=== PATIENT | male | born 1985 | race Caucasian/White ===

== ENCOUNTER 2021-11-24 13:16 | Emergency (ER) | payer OTHER, SELFPAY ==
--- NOTE | ~2021-11-24 | CT_ITS ---
EXAMINATION: CT KNEE WITH CONTRAST, RIGHT CLINICAL INFORMATION: Right posterior knee cellulitis versus abscess. COMPARISON: None TECHNIQUE: Multidetector CT imaging of the right knee was performed after the administration of 85 mL Omnipaque 350 intravenous contrast. Coronal and sagittal reformats are reviewed. This CT examination was performed using dose optimization techniques as appropriate, variously including the following: *Automated exposure control *Adjustment of mA and/or kV according to patient size (this includes techniques or standardized protocols for targeted exams where dose is matched to indication/reason for exam; i.e. extremities or head) *Use of iterative reconstruction technique DLP: 233 mGy-cm FINDINGS: There is skin thickening and subcutaneous fat reticulation along the distal thigh posteriorly, within the subcutaneous fat overlying the popliteal fossa and along the posterior upper calf. Fluid does become more coalescent superficial to the gastrocnemius musculature, however there is no drainable collection or evidence of abscess formation. No popliteal cyst is identified. No joint effusion. No periosteal reaction, cortical destruction or intramedullary lucency to suggest osteomyelitis. No fractures. Cruciate ligaments, medial and lateral collateral ligaments and extensor mechanism are grossly intact. CT/CT knee RT w con IMPRESSION: * There is regional edema within the subcutaneous fat posterior to the knee joint which could be compatible cellulitis. * No evidence of abscess formation. * Inflammation does not extend deep to the superficial fascia. * No soft tissue gas to suggest necrotizing fasciitis. * No evidence of osteomyelitis. * No joint effusion.
[2021-11-24 13:42] VITALS: BP 142/85; PULSE 117; RESP 18; TEMP 36.9; O2SAT 97; BMI 27.5
--- NOTE | 2021-11-24 15:32 | ED_ITS ---
HPI - Skin/Abscess/Foreign Bdy General Chief complaint: Skin/Abscess/Foreign Body Stated complaint: R leg infection Time Seen by Provider: 11/24/21 15:10 Source: patient Mode of arrival: ambulatory History of Present Illness HPI narrative: 36-year-old male with no significant past medical history presenting to the ED complaining of swelling, erythema, and pain behind right knee x5 days. Reports area 1st started looking like rash, now is worsening with unremitting pain causing difficulty ambulating. Denies known tick/insect bites, does admit to [facility] on the 10 of November. Also reports fever T-max 100 degrees last night, denies taking antipyretics today. Denies drainage from area, numbness, tingling MD complaint: rash and discoloration Onset (ago): day(s) Related Data Home Medications Medication Instructions Recorded Confirmed acetaminophen 500 mg tablet 500 mg PO Q6H PRN 11/24/21 (Tylenol Extra Strength) ibuprofen 400 mg tablet 400 mg PO Q8H 11/24/21 Previous Rx's Medication Instructions Recorded cephalexin 500 mg capsule 500 mg PO QID 7 days #28 caps 11/24/21 doxycycline hyclate 100 mg tablet 100 mg PO BID 7 days #14 tabs 11/24/21 Allergies Allergy/AdvReac Type Severity Reaction Status Date / Time No Known Allergies Allergy Verified 11/24/21 11:51 Review of Systems Review of Systems: Constitutional: + Fever, No Chills, No Fatigue, No Malaise ENT/Mouth: No Hearing loss, No Ear Pain, No Nasal Congestion, No sore throat, No Rhinorrhea, No Swallowing Difficulty Eyes: No Eye Pain, No Swelling, No Redness, No Vision Changes Cardiovascular: No Chest Pain, No SOB, No Dyspnea on Exertion, No Orthopnea, No Edema, No Palpitations Respiratory: No Cough, No Sputum, No Dyspnea Gastrointestinal: No Nausea, No Vomiting, No Diarrhea, No Constipation, No Abdominal pain Genitourinary: No irregular bleeding, No Dysuria, No Urinary Frequency, No Hematuria Musculoskeletal: + joint pain, No Myalgias, + Joint Swelling Skin: + Skin Lesions, No rash Neuro: No Weakness, No Numbness, No Paresthesias, No Headache Yes all other systems are reviewed and are negative COUNT INCLUDES THE [facility] Past Medical History Attestation statement: The following information was validated with the patient. Social History Social History Advance Directives: No Advance Directives Information Provided: No Physical Exam Vital Signs: Vital Signs: Last Vital Signs Temp 98.4 F 11/24/21 13:42 Pulse 117 H 11/24/21 13:42 Resp 18 11/24/21 13:42 BP 142/85 H 11/24/21 13:42 Pulse Ox 97 11/24/21 13:42 O2 Del Method 11/24/21 13:42 BMI result Body Mass Index 27.5 Const: General: cooperative, healthy appearing and no acute distress Orientation/consciousness: patient oriented x3 Limitations: no limitations HEENT: Head: Yes normal to inspection and Yes atraumatic Ears: hearing grossly normal bilaterally General nose exam: Normal external nose present Face and sinus: Yes normal facial exam Eyes: General: appearance normal, both eyes and all related structures EOM: EOMs intact bilaterally Neck: Neck: Yes normal visual inspection and Yes no meningeal signs Resp: Effort & Inspection: normal respiratory effort and no respiratory distress Cardio: Rate: regular rate Heart sounds: S1 normal heart sound present and S2 normal heart sound present Skin: Other: Please refer to imaging above of posterior right knee. Noted erythema, warm to touch, some crusting, + induration. No fluctuance or drainage. No streaking. Wounds: no wounds Neuro: Other: Ambulating with limping gait General: patient oriented x3, tone normal and no meningeal signs Extrem: Other: anterior aspect of knee nontender. Course Course Course Narrative: -1639--mild leukocytosis of 11.2. Lactic acid negative. Labs otherwise unremarkable. CT knee RT w con IMPRESSION: *? There is regional edema within the subcutaneous fat posterior to the knee joint which could be compatible cellulitis. *? No evidence of abscess formation. *? Inflammation does not extend deep to the superficial fascia. *? No soft tissue gas to suggest necrotizing fasciitis. *? No evidence of osteomyelitis. *? No joint effusion. ? -HR improved to 95 prior to discharge > Results discussed with patient including worrisome signs and symptoms and str ict return precautions, and when to return to the emergency department. They verbalized understanding and feel safe for discharge at this time. MDM - Skin/Abscess/Foreign Bdy MDM Narrative Medical decision making narrative: 36-year-old male with no significant past medical history presenting to the ED complaining of swelling, erythema, and pain behind right knee x5 days. On exam tachycardic to 117, likely from pain. Low suspicion for severe sepsis. Physical exam as above, please refer to image. Concern for indurated abscess vs cellulitis. Low suspicion for septic joint/arthritis. ? Possible tick or insect bite Plan: Labs, lactic/blood cultures, CT of knee for further evaluation, IV an tibiotics Differential Diagnosis Differential diagnosis: Likely abscess of skin or subcutaneous tissue, insect bites and contact dermatitis Medical Records Attestation: I reviewed the patient's medical records. Lab Data Attestation: I reviewed the patient's lab results. Result diagrams: 11/24/21 15:34 11/24/21 15:34 Labs: Lab Results 11/24/21 11/24/21 11/24/21 Range/Units 15:34 15:34 15:34 WBC 11.2 H (4.8-10.8) X10*3/uL RBC 4.70 (4.60-5.80) X10*6/uL Hgb 13.1 L (14.0-18.0) g/dl Hct 39.0 L (42.0-52.0) % MCV 83.0 (80.0-98.0) fL MCH 27.9 (27.0-33.0) pg MCHC 33.6 (31.0-36.0) g/dl RDW 12.0 (11.0-16.0) % Plt Count 244 (160-400) X10*3/uL MPV 8.2 L (9.4-12.4) fL Immature Gran % (Auto) 0.4 (0.0-0.4) % Neut % (Auto) 76.0 H (45-73) % Lymph % (Auto) 13.0 L (20-40) % [place] % (Auto) 10.4 (2-11) % Eos % (Auto) 0.1 (0-4) % Baso % (Auto) 0.1 (0-2) % Lymph # (Auto) 1.5 (1.2-4.9) X10*3/uL [place] # (Auto) 1.2 (0.1-1.2) X10*3/uL Eos # (Auto) 0.0 (0.0-0.4) X10*3/uL Baso # (Auto) 0.0 (0.0-0.2) X10*3/uL Abs Immat Gran (auto) 0.05 H (0.00-0.03) X10*3/uL Absolute Neuts (auto) 8.5 H (2.0-8.3) x10*3/uL Absolute Nucleated RBC 0.000 (0.0-0.012) X10*3/uL Nucleated RBC % (auto) 0.0 (0.0-0.2) /100WBC Sodium 138 (135-145) mmol/L Potassium 4.0 (3.3-5.1) mmol/L Chloride 103 (96-108) mmol/L Carbon Dioxide 27 (22-29) mmol/L Anion Gap 12 (12-20) BUN 11 (9-16) mg/dL Creatinine 0.97 (0.5-1.4) mg/dL Estim Creat Clear Calc 124.6 Estimated GFR > 60 Random Glucose 105 (60-115) mg/dL Lactic Acid 0.9 (0.5-2.0) mmol/L Calcium 9.5 (8.4-10.2) mg/dL Total Bilirubin 1.4 H (0.0-1.0) mg/dL AST 13 (5-37) U/L ALT 13 (0-40) U/L Alkaline Phosphatase 88 (39-117) U/L Total Protein 8.0 (6.5-8.0) g/dL Albumin 4.6 (3.5-5.0) g/dL Discharge Plan Discharge Clinical Impression: Cellulitis Patient Disposition: Home, Self-Care Instructions: Cellulitis (ED) Additional Instructions: Your blood work was reassuring today in the emergency department. Keflex and doxycycline for antibiotics please take as prescribed. If your symptoms persist, worsen, redness is spreading, you develop drainage from area, persistent or worsening pain, or fever return to the emergency department. Apply warm compresses Prescriptions: New doxycycline hyclate 100 mg tablet 100 mg PO BID 7 Days Qty: 14 0RF cephalexin 500 mg capsule 500 mg PO QID 7 Days Qty: 28 0RF No Action ibuprofen 400 mg tablet 400 mg PO Q8H acetaminophen [Tylenol Extra Strength] 500 mg tablet 500 mg PO Q6H PRN Referrals: Physician,Unknown J [Primary Care Provider] - 2 days (For re-evaluation)
[2021-11-24 15:42] LABS: MANUAL DIFF FLAG NO
[2021-11-24 15:47] LABS: Basophils Percent Auto 0.1 % (0-2); Eosinophils Percent Auto 0.1 % (0-4); Hemoglobin 13.1 g/dl (14.0-18.0); Imm Gran Abs Auto 0.05 X10*3/uL (0.00-0.03); Imm Gran Pct Auto 0.4 % (0.0-0.4); Lymphocytes Absolute Auto 1.5 X10*3/uL (1.2-4.9); Mean Corpuscular HGB Conc 33.6 g/dl (31.0-36.0); Mean Corpuscular Hemoglobin 27.9 pg (27.0-33.0); Mean Platelet Volume 8.2 fL (9.4-12.4); Monocytes Absolute Auto 1.2 X10*3/uL (0.1-1.2); Monocytes Percent Auto 10.4 % (2-11); Neutrophils Absolute Auto 8.5 x10*3/uL (2.0-8.3); Platelet Count 244 X10*3/uL (160-400); White Blood Count 11.2 X10*3/uL (4.8-10.8)
[2021-11-24] MEDS: iohexoL 350 MG/ML 100 ML INFUS..BTL IV (15:57)
[2021-11-24 16:00] LABS: Lactic Acid 0.9 mmol/L (0.5-2.0)
[2021-11-24] MEDS: Ketorolac Tromethamine 15 MG/ML VIAL IVPUSH (16:02)
[2021-11-24] MEDS: cefTRIAXone sodium 1 GM in 0.9 % Sodium Chloride 50 ML IV (16:02)
[2021-11-24 16:06] LABS: Alanine Aminotransferase 13 U/L (0-40); Albumin Level 4.6 g/dL (3.5-5.0); Alkaline Phosphatase 88 U/L (39-117); Anion Gap 12 (12-20); Aspartate Amino Transferase 13 U/L (5-37); Bilirubin Total 1.4 mg/dL (0.0-1.0); Blood Urea Nitrogen 11 mg/dL (9-16); Calcium 9.5 mg/dL (8.4-10.2); Carbon Dioxide 27 mmol/L (22-29); Chloride 103 mmol/L (96-108); Creatinine Clr Calc Pharmacy 124.6; Estimated Glomerular Filt Rate > 60; Glucose Random 105 mg/dL (60-115); Sodium 138 mmol/L (135-145)
== END 2021-11-24 17:55 | disposition home or self-care (01) ==
PROVIDERS: Physician Assistant; Emergency Provider Emergency Medicine
DX: L03.115 Cellulitis of right lower limb (principal); M25.461 Effusion, right knee; Z79.899 Other long term (current) drug therapy
CPT/HCPCS: 36415; 73701; 80053; 83605; 85025; 87040; 96365; 96375; 99283; 99284; J0696; J1885; Q9967

== ENCOUNTER 2024-01-19 11:06 | Outpatient (AMB) | payer OTHER, SELFPAY ==
[2024-01-19 11:08] VITALS: BP 128/84; PULSE 119; TEMP 36.2; O2SAT 97; BMI 27.9
--- NOTE | 2024-01-19 11:08 | MHC.OFFWIV ---
Intake Vital Signs 01/19/24 11:08 Height 6 ft 3 in Weight 223 lb BMI 27.9 BP 128/84 Blood Pressure Location Lt brachial Position Sitting Pulse 119 H Pulse Source Pulse Oximeter Temp 97.2 F Temp Source Temporal Artery Scan Pulse Oximetry (%) 97 Oxygen Delivery Method Room Air Intake Visit Reasons: EP-sore throat Intake Note: pt c/o sore throat, fever. Started Wednesday Patient Tobacco Use Status: Former Tobacco user Allergies No Known Allergies Allergy (Verified 01/19/24 11:09) Do you need a note to return to daycare/school/sports/work: No HPI HPI Comments History of Present Illness Details Patient is a 38-year-old male complaining of 4 days of a sore throat and fevers up to 101F. 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 He has been taking Tylenol and ibuprofen for his fever and throat pain. He denies a cough, sinus pain, ear pain, headaches or shortness of breath. [facility] Social History Patient Tobacco Use Status: Former Tobacco user Review of Systems Const All systems reviewed & are unremarkable except as noted in HPI and below Physical Exam Vital Signs: Last Vital Signs Temp 97.2 F 01/19/24 11:08 Pulse 119 H 01/19/24 11:08 BP 128/84 01/19/24 11:08 Pulse Ox 97 01/19/24 11:08 Oxygen Delivery Method Room Air 01/19/24 11:08 BMI result Body Mass Index 27.9 Const General: cooperative, healthy appearing, comfortable and no acute distress Orientation/consciousness: patient oriented x3 Limitations: no limitations HEENT Head: Yes normal to inspection Ears: hearing grossly normal bilaterally, external ears normal and TM's normal bilaterally General nose exam: Normal external nose present, Normal nares present and No nasal discharge present Face and sinus: Yes normal facial exam and Yes sinuses nontender Mouth: Normal oral and palatal mucosa present and moist mucous membranes Throat: Yes tonsils normal, Yes uvula midline and Yes posterior oropharynx abnormal (Erythema) Eyes General: appearance normal, both eyes and all related structures Neck Neck: Yes normal visual inspection Resp Effort & Inspection: normal respiratory effort, able to speak in complete sentences, Actively coughing, no respiratory distress, not tachypneic, no tripod positioning and no use of accessory muscles Skin General skin exam: no rashes or lesions noted Neuro General: patient oriented x3 Extrem General: Yes normal to inspection and Yes no clubbing, cyanosis or edema Results AMB Rapid Strep AMB Rapid Strep Positive Last Edit by Kendrick Gale CMA on 01/19/24 11:27 Results Reviewed Results Reviewed: Laboratory Last Values Strep Scn Rapid Clinic Positive 01/19/24 11:26 Assessment & Plan Assessment & Plan (1) Strep pharyngitis: Code(s): J02.0 - Streptococcal pharyngitis Plan: Rapid strep positive in office, sent flu COVID and RSV. Sent amoxicillin to pharmacy, gave patient instructions to take it with food and to continue using Tylenol and ibuprofen for fever and throat pain. Plan See above Orders: Orders SARS-CoV2/FLU/RSV Today J06.9 - Acute upper respiratory infection, unspecified AMB Rapid Strep Screen Today Z13.9 - Encounter for screening, unspecified Medications: New amoxicillin 500 mg PO BID 20 tabs 0RF Coding Level of Care Code New Pt Level 3 (16725) Diagnoses Strep pharyngitis J02.0
--- OUTSIDE RECORDS SUMMARY | 2024-01-19 11:08 | XMS_ITS | Continuity of Care Document ---
Author Organization [facility] Address [address] [facility] [place] [address]- Care Team Providers Care Saloonkeeper Name Role Phone Bernie Boyd Primary Care Physician [phone] Encounter 11/22/23 - 11/29/23 [facility] [address], [address] [place] [address]- Attending Physician: Bernie Boyd Admitting Physician: Bernie Boyd Referring Physician: Bernie Boyd Allergies, Adverse Reactions, Alerts No Known Allergies Immunizations Given and Recorded Vaccine Date Status Refusal Reason SARS-CoV-2 (COVID-19) mRNA BNT-162b2 vac 08/15/20 Given SARS-CoV-2 (COVID-19) mRNA BNT-162b2 vac 07/25/20 Given Problem List Condition Confirmation Course Effective Dates Status Health St atus Informant Total bilirubin, elevated Confirmed Active H/O hemorrhoids Confirmed Active Hyperlipemia Confirmed Active Results Radiology Reports * Exam Date Time Procedure Performing Provider Status 11/22/23 11:34 AM Lumbar Spine 2 or 3 Views Dionne Stein yovana; Auth (Verified) Notes: (Lumbar Spine 2 or 3 Views) Reason For Exam: Pain RESULT: Lumbar Spine 2 or 3 Views Lumbar Spine 2 or 3 Views INDICATION/CLINICAL QUESTION: Reason: Pain / . TECHNIQUE: AP, lateral, and coned-down lateral views.. COMPARISON: None. FINDINGS: There is normal segmentation. There is no fracture. There is no focal bony lesion. The alignment is normal including no spondylolisthesis. The discs are of normal height without degenerative change.. IMPRESSION: 1. No fracture or focal lesion. 2. No spondylolisthesis. 3. No degenerative changes.. WSN: [id number] Ordering Physician: Bernie Ramesh Dictated By: Miguel Young MD Dictated Date/Time: 11/22/23 4:32 pm Reviewed By: Miguel Young MD Signed By: Miguel Young MD Signed Date/Time: 11/22/23 4:32 pm Transcribed By: LLOYD Transcribed Date/Time: 11/22/23 4:31 pm Social History Social History Type Response Smoking Status Never (less than 100 in lifetime) entered on: 06/08/22 Sex Patient Care team information Care Team Personnel Name: Bernie Boyd Position: [facility] Associate Professional Member Role: PCP Address: Address: [address] [place] [address]- Care Team Related Persons Name: BRIDGETTE LEIJA Address: home [address] [place] [address] [address] [place] [address]
--- OUTSIDE RECORDS SUMMARY | 2024-01-19 11:08 | XMS_ITS | Continuity of Care Document ---
Author Organization [facility] Primary [facility] [place] Address [address] [place] [address]- Care Team Providers Care Cash Room Clerk Name Role Phone Bernie Boyd Primary Care Physician Encounter [facility] Date(s): 10/25/23 - 11/24/23 [facility] Care [place] [address] [place] [address]- Attending Physician: Melba Figueredo Admitting Physician: AdmMelba brown Referring Physician: AdmtrMelba Allergies, Adverse Reactions, Alerts No Known Allergies Immunizations Given and Recorded Vaccine Date Status Refusal Reason SARS-CoV-2 (COVID-19) mRNA BNT-162b2 vac 08/15/20 Given SARS-CoV-2 (COVID-19) mRNA BNT-162b2 vac 07/25/20 Given Problem List Condition Confirmation Course Effective Dates Status Health St atus Informant Total bilirubin, elevated Confirmed Active H/O hemorrhoids Confirmed Active Hyperlipemia Confirmed Active Social History Social History Type Response Smoking Status Never (less than 100 in lifetime) entered on: 06/08/22 Sex Patient Care team information Care Team Personnel Name: Bernie Boyd Position: [facility] Associate Professional Member Role: PCP Address: Address: [address] [place] [address]- Care Team Related Persons Name: BRIDGETTE LEIJA Address: home [address] [place] [address]
--- OUTSIDE RECORDS SUMMARY | 2024-01-19 11:08 | XMS_ITS | Continuity of Care Document ---
Author Organization [facility] Trevor Christoph lt Address [address] [place] [address]- Care Team Providers Care Mathematical Physicist Name Role Phone Bernie Boyd Primary Care Physician Encounter [facility] Date(s): 11/22/23 - 11/29/23 [facility] Davy [address] Adult [address] [place] [address]- Encounter Diagnosis Wellness examination(Discharge Diagnosis) - 11/22/23 Back pain(Discharge Diagnosis) - 11/22/23 Attending Physician: Bernie Boyd Allergies, Adverse Reactions, Alerts No Known Allergies Immunizations Given and Recorded Vaccine Date Status Refusal Reason SARS-CoV-2 (COVID-19) mRNA BNT-162b2 vac 08/15/20 Given SARS-CoV-2 (COVID-19) mRNA BNT-162b2 vac 07/25/20 Given Problem List Condition Confirmation Course Effective Dates Status Health St atus Informant Total bilirubin, elevated Confirmed Active H/O hemorrhoids Confirmed Active Hyperlipemia Confirmed Active Diagnosis Diagnosis Type Effective Dates Health Status Clinical Service Informant Wellness examination Discharge Diagnosis 11/22/23 Back pain Discharge Diagnosis 11/22/23 Vital Signs Most recent to oldest [Reference Range]: 1 Height 191 cm (11/22/23 10:52 AM) Weight 100.7 kg (11/22/23 10:52 AM) Oxygen Saturation [94-100 %] 98 % (11/22/23 10:52 AM) Pulse Rate [55-90 bpm] 90 bpm (11/22/23 10:52 AM) Body Mass Index [18.5-24.99 kg/m2] 27.6 kg/m2 *H* (11/22/23 10:52 AM) Blood Pressure [90-138/55-84 mm Hg] 102/ 84mm Hg (11/22/23 10:52 AM) Mode of Delivery (Oxygen) Room air (11/22/23 10:52 AM) Blood pressure sites Arm, left (11/22/23 10:52 AM) Weight Obtained Via Standing scale (11/22/23 10:52 AM) Social History Social History Type Response Smoking Status Never (less than 100 in lifetime) entered on: 06/08/22 Sex Patient Care team information Care Team Personnel Name: Bernie Boyd Position: [facility] PC[facility] Associate Professional Member Role: PCP Address: Address: [address] [place] [address]- Care Team Related Persons Name: BRIDGETTE LEIJA Address: home [address] [place] [address] [address] [place] [address]
--- OUTSIDE RECORDS SUMMARY | 2024-01-19 11:08 | XMS_ITS | Continuity of Care Document ---
Author Organization [facility] Primary [place] Address [address] [place] [address]- Care Team Providers Care Needle Straightener Name Role Phone Not on Staff, PCP Primary Care Physician Unavail able Encounter [id number] Date(s): 11/25/21 - 03/06/22 [facility] [place] [address] [place] [address]- Attending Physician: Baltazar MURILLO ([facility]), Sunitario vistaese A Immunizations Given and Recorded Vaccine Date Status Refusal Reason SARS-CoV-2 (COVID-19) mRNA BNT-162b2 vac 08/15/20 Given SARS-CoV-2 (COVID-19) mRNA BNT-162b2 vac 07/25/20 Given Patient Care team information Personnel Name: Not on Staff, PCP
--- OUTSIDE RECORDS SUMMARY | 2024-01-19 11:08 | XMS_ITS | Continuity of Care Document ---
Author Organization [facility] Christoph Address [address] [place] [address]- Care Team Providers Care Salmon Gillnet Vessel Operator Name Role Phone Bernie Boyd Primary Care Physician [phone] Encounter [facility] Date(s): 11/22/23 - 12/22/23 [facility] Adult [address] [place] [address]- Attending Physician: Melba Figueredo Admitting Physician: Melba Figueredo Referring Physician: AdmtrMelba Allergies, Adverse Reactions, Alerts [...] Care Team Personnel Name: Bernie Boyd Position: [facility] PCO Associate Professional Member Role: PCP Address: Address: [address] [place] [address]- Care Team Related Persons Name: AUGUSTODONNASINDHU BRIDGETTE FERREIRA Address: home [address] [place] [address]
--- OUTSIDE RECORDS SUMMARY | 2024-01-19 11:08 | XMS_ITS | Continuity of Care Document ---
Author Organization [facility] Primary [facility] [place] Address [address] [place] [address]- Care Team Providers Care Marketing Information Manager Name Role Phone Baltazar MURILLO ([facility])Alexi Primary Care Ph ysician Encounter [facility] Date(s): 10/27/22 - 11/26/[address] [address] Allergies, Adverse Reactions, Alerts No Known Allergies [...] Care team information Care Team Personnel Name: Baltazar MURILLO ([facility])Alexi Position: [facility] Physician - Primary Care Member Role: PCP Address: Address: [address] [place] [address]- Care Team Related Persons Name: AUGUSTODONNASINDHU BRIDGETTE FERREIRA Address: home [address] [place] [address]
--- OUTSIDE RECORDS SUMMARY | 2024-01-19 11:08 | XMS_ITS | Continuity of Care Document ---
Author Organization [facility] Trevor Christoph lt Address [address] [place] [address]- Care Team Providers Care District Representative Name Role Phone Bernie Boyd Primary Care Physician Encounter [facility] Date(s): 11/30/23 - 12/30/23 [facility] Adult [address] [place] [address]- Allergies, Adverse Reactions, Alerts No Known Allergies [...] Associate Professional Member Role: PCP Address: Address: [address] [place] [address]- Care Team Related Persons Name: GINO BRIDGETTE FERREIRA Address: home [address] [place] [address]
--- OUTSIDE RECORDS SUMMARY | 2024-01-19 11:08 | XMS_ITS | Continuity of Care Document ---
Author Organization [facility] Primary [facility] [place] Address [address] [place] [address]- Care Team Providers Care Principal Quality Engineer Name Role Phone Baltazar MURILLO ([facility])Alexi Primary Care Ph ysician Encounter [facility] Date(s): 10/26/22 - 11/25/[address] [address] Allergies, Adverse Reactions, Alerts No Known Allergies [...] information Care Team Personnel Name: Baltazar MURILLO ([facility])Alexi Position: [facility] Physician - Primary Care Member Role: PCP Address: Address: [address] [place] [address]- Care Team Related Persons Name: AUGUSTODONNASINDHU BRIDGETTE FERREIRA Address: home [address] [place] [address]
== END 2024-01-19 11:48 | disposition home or self-care (01) ==
PROVIDERS: Visit Provider Physician Assistant
DX: J02.0 Streptococcal pharyngitis (principal)
CPT/HCPCS: 87880; 99203

== ENCOUNTER 2024-01-19 11:26 | Outpatient (REF) | payer OTHER, SELFPAY ==
[2024-01-19 15:09] LABS: Influenza A PCR NEGATIVE (Negative); Influenza B PCR NEGATIVE (Negative); Resp Syncy Virus RNA Qual PCR NEGATIVE (Negative); SARS COV2 PCR INHOUSE NEGATIVE (Negative)
== END 2024-01-19 11:27 | disposition home or self-care (01) ==
LOC: HO.LAB 11:26
PROVIDERS: Visit Provider Physician Assistant
DX: J06.9 Acute upper respiratory infection, unspecified (principal)
CPT/HCPCS: 0241U

== ENCOUNTER 2024-06-17 10:03 | Outpatient (AMB) | payer OTHER, SELFPAY ==
[2024-06-17 10:33] VITALS: BP 102/76; PULSE 93; RESP 18; TEMP 36.7; O2SAT 98; BMI 26.6
--- NOTE | 2024-06-17 10:33 | MHC.OFFWIV ---
Intake Vital Signs 06/17/24 10:33 Height 6 ft 3 in Weight 213 lb BMI 26.6 BP 102/76 Blood Pressure Location Rt brachial Position Sitting Respiration 18 Pulse 93 Pulse Source Pulse Oximeter Temp 98.0 F Temp Source Oral Pulse Oximetry (%) 98 Oxygen Delivery Method Room Air Intake Visit Reasons: EP-sore throat Intake Note: Pt is here today c/o sore throat, coughing and fatigue Patient Tobacco Use Status: Former Tobacco user Allergies No Known Allergies Allergy (Verified 06/17/24 10:34) HPI EP-sore throat HPI Details Patient is a 38-year-old male who comes to the walk-in clinic complaining of sore throat, and fatigue. 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 He reports that they were just diagnosed with a respiratory virus. He denies She denies fever or chills, nausea vomiting or diarrhea, malaise or myalgias, headache, dizziness or weakness, ear pain or discharge from the ears, hearing changes, chest congestion, shortness of breath or significant cough, coughing fits, chest pain, or other significant associated symptoms. [facility] Social History Patient Tobacco Use Status: Former Tobacco user Review of Systems Const All systems reviewed & are unremarkable except as noted in HPI and below Physical Exam Vital Signs: Last Vital Signs Temp 98.0 F 06/17/24 10:33 Pulse 93 06/17/24 10:33 Resp 18 06/17/24 10:33 BP 102/76 06/17/24 10:33 Pulse Ox 98 06/17/24 10:33 Oxygen Delivery Method Room Air 06/17/24 10:33 BMI result Body Mass Index 26.6 Results AMB Rapid Strep AMB Rapid Strep Positive Last Edit by Charleen Gavin CMA on 06/17/24 10:52 Results Reviewed Results Reviewed: Laboratory Last Values Strep Scn [facility] Positive 06/17/24 10:41 Positive strep test Assessment & Plan Assessment & Plan (1) Strep pharyngitis: Code(s): J02.0 - Streptococcal pharyngitis Plan: Patient with positive strep pharyngitis, which he had approximately 6 months ago also. He questions the recurrence of his symptoms, however we discussed that he does work in a school, and it is prevalence there. We discussed wearing a mask around sick children, and washing hands frequently. He also will throughout his toothbrush when his symptoms are improved. We discussed conservative measures such as adequate sleep, hydration, and nutrition. He is able to swallow, and does not have any systemic symptoms other than feeling tired. He knows to monitor symptoms and follow up if he gets worse, or go to the emergency department with worrisome symptoms. Orders: Orders AMB Rapid Strep Screen Today Z13.9 - Encounter for screening, unspecified Medications: New penicillin V potassium 500 mg PO TID 30 tabs 0RF 10 days Coding Level of Care Code Est Pt Level 4 (13278) Diagnoses Strep pharyngitis J02.0
== END 2024-06-17 12:48 | disposition home or self-care (01) ==
PROVIDERS: Visit Provider Physician Assistant Medical
DX: Z13.9 Encounter for screening, unspecified (principal)

== ENCOUNTER → 2024-06-17 10:03 | Outpatient (BNVA) | payer OTHER, SELFPAY | DX: J02.0 Streptococcal pharyngitis (principal) | CPT/HCPCS: 87880 ==

== ENCOUNTER 2024-07-04 11:32 | Outpatient (AMB) | payer OTHER, SELFPAY ==
--- NOTE | 2024-07-04 11:47 | AM.OFFWIN_ITS ---
Intake Vital Signs 07/04/24 11:49 Weight 218 lb BP 126/74 Blood Pressure Location Lt brachial Position Sitting Pulse 80 Pulse Source Pulse Oximeter Temp 98.2 F Temp Source Oral Pulse Oximetry (%) 97 Oxygen Delivery Method Room Air Intake Visit Reasons: EP Strep did not go away after abx Intake Note: Patient here because he was treated for strep throat on jun 19 and was starting to feel better but the last couple of days he feels that sore throat coming back and now also has a runny nose. Patient Tobacco Use Status: Former Tobacco user Allergies No Known Allergies Allergy (Verified 07/04/24 11:50) Do you need a note to return to daycare/school/sports/work: No HPI HPI Comments History of Present Illness Details History - The patient is a 38-year-old male pres enting with a sore throat, expressing concern about recurrent Streptococcal Pharyngitis. - The initial diagnosis was made on , with treatment involving Penicillin administered three times daily for a duration of ten days, resulting in symptom resolution after five days. - Currently, the patient reports a recur rence of sore throat symptoms, which began yesterday with increasing severity and has expressed accompanying fatigue and dizziness. - No fever, shortness of breath, or whee zing is present, and the patient has not taken additional medications in recent days. - The patient denies any history of asth ma or COPD and has not received a recent flu vaccination. - The patient reports no similar symptom s among family members. Physical Exam General: Cooperative, healthy appearing, comfortable and no acute distress Orientation/consciousness: Patient oriented x3 Limitations: No limitations Head: Normal to inspection Ears: Hearing grossly normal bilaterally, external ears normal and TM's normal bilaterally Nose: Normal external nose present, Normal nares present and Runny nose present Face and sinus: Normal facial exam and Yes sinuses nontender Mouth: Normal oral and palatal mucosa present and moist mucous membranes Throat: Tonsils slight edema and erythema, Yes uvula midline. Posterior oropharynx erythema Eyes: Appearance normal, both eyes and all related structures Neck: Normal visual inspection Respiratory: Clear to auscultation bilaterally. Normal respiratory effort, able to speak in complete sentences, Actively coughing, no respiratory distress, not tachypneic, no tripod positioning and no use of accessory muscles Cardiovascular: Regular rate and rhythm. Normal S1 and S2 Skin: No rashes or lesions noted Neuro: Patient oriented x3 Extremities: Normal to inspection and Yes no clubbing, cyanosis or edema PFSH Social History Patient Tobacco Use Status: Former Tobacco user Review of Systems Const All systems reviewed & are unremarkable except as noted in HPI and below Physical Exam Vital Signs: Last Vital Signs Temp 98.2 F 07/04/24 11:49 Pulse 80 07/04/24 11:49 BP 126/74 07/04/24 11:49 Pulse Ox 97 07/04/24 11:49 Oxygen Delivery Method Room Air 07/04/24 11:49 Results AMB Rapid Strep AMB Rapid Strep Positive Last Edit by OSMAN Watson on 07/04/24 12: 47 Assessment & Plan Assessment & Plan (1) URI, acute: Code(s): J06.9 - Acute upper respiratory infection, unspecified Plan: Diagnostic testing was performed, including throat and nasal swabs for influenza, COVID-19, RSV, and streptococcal infection due to the recurrence of sore throat and enlarged, reddened tonsils. Based on the history of Streptococcal Pharyngitis and recent onset of symptoms, streptococcal testing specificity was emphasized. Rapid strep is positive in the office, we will perez at with a cephalosporin rather than penicillin. Also spoke with the patient as this is his 3rd strep infection in the last 6 months, he should follow up with his PCP about a possible ENT referral as well as confirmation that he has clearing the disease. Patient understands and agrees with plan. Antibiotics have been sent to his pharmacy. Patient was informed and verbally consented to the use of an ambient scribe for clinic note documentation during this visit Orders: Orders SARS-CoV2/FLU/RSV Today R09.89 - Other specified symptoms and signs involving the circulatory and respiratory systems AMB Rapid Strep Screen Today Z13.9 - Encounter for screening, unspecified Medications: New cefuroxime axetil 500 mg PO Q12H 10 days 20 tabs 0RF Coding Level of Care Code New Pt Level 3 (41096) Diagnoses URI, acute J06.9
[2024-07-04 11:49] VITALS: BP 126/74; PULSE 80; TEMP 36.8; O2SAT 97
== END 2024-07-04 12:51 | disposition home or self-care (01) ==
PROVIDERS: Visit Provider Physician Assistant
DX: Z13.9 Encounter for screening, unspecified (principal); J06.9 Acute upper respiratory infection, unspecified

== ENCOUNTER 2024-07-04 11:32 | Outpatient (REF) | payer OTHER, SELFPAY ==
[2024-07-04 17:25] LABS: Influenza A PCR NEGATIVE (Negative); Influenza B PCR NEGATIVE (Negative); Resp Syncy Virus RNA Qual PCR NEGATIVE (Negative); SARS COV2 PCR INHOUSE NEGATIVE (Negative)
== END 2024-07-04 11:33 | disposition home or self-care (01) ==
LOC: HO.LNP 11:32
PROVIDERS: Visit Provider Physician Assistant
DX: J06.9 Acute upper respiratory infection, unspecified (principal); R09.89 Other specified symptoms and signs involving the circulatory and respiratory systems
CPT/HCPCS: 0241U; 87880